=== PATIENT | female | born 1990 | race Caucasian/White ===

== ENCOUNTER 2017-02-18 07:00 | Inpatient (IN) | payer OTHER ==
[2017-02-18 08:17] VITALS: BMI 31.2
[2017-02-18 08:27] LABS: BASOPHIL 0.3 % (0-2.0); EOSINOPHIL 0.5 % (0-4.5); MCH 30.6 pg (25.7-33.7); MCHC 33.6 g/dl (32.0-36.0); MEAN CELL VOLUME 91.3 fl (80-96); MEAN PLT VOLUME 8.8 fl (7.5-11.1); NEUTROPHILS 69.2 % (42.8-82.8); PLATELET COUNT 249 K/MM3 (134-434); RDW 14.2 % (11.6-15.6); WHITE BLOOD COUNT 8.7 K/mm3 (4.0-10.0)
[2017-02-18 08:41] LABS: INR 0.9 (0.82-1.09); PROTHROMBIN TIME (PATIENT) 9.9 SEC (9.98-11.88)
[2017-02-18 08:45] LABS: ACTIVATED PTT 25.6 SECONDS (26.9-34.4)
[2017-02-18 08:48] LABS: CALCIUM 8.2 mg/dL (8.5-10.1); COCKROFT - GAULT 198.7725; CREATININE 0.5 mg/dL (0.55-1.02)
[2017-02-18] MEDS ORDERED: PROMETHAZINE HCL 25 MG/1 ML VIAL IVPUSH ONE (11:42)
[2017-02-18] MEDS ORDERED: BUTORPHANOL TARTRATE 1 MG/ML VIAL IVPB ONE (11:42)
[2017-02-18] MEDS ORDERED: OXYTOCIN 15 UNITS/ LR 250 ML 250 ML IVPB SCH (11:45)
[2017-02-18] MEDS ORDERED: DEXTROSE 5%-LACTATED RINGERS 1,000 ML IV SCH (11:45)
--- NOTE | 2017-02-18 11:53 | HP ---
Past Medical History - Primary Care Physician PCP:: Sulema Card - Admission Chief Complaint: 26 yrs , 40.4 weeks by dates & 39.4 weeks by sono , is admitted in labor. onset of LP since 9.00am c/o bleeding , bloody show History of Present Illness: PNC at , 2 [facility] . , wt gain 35 lbs . work UP : O Pos, Rpr nr, Hbsag neg, Rubella pos, Hiv nr, Quantiferon pos, , Gbs neg , Hiv neg Ntscreen neg, Modified sequntial neg, 1 hr GTt 130. serial sono for growth were done by [facility]. last sono on 01/01/1732.3/7 wks, vx, post placenta, afi14.39, bpp8/8. 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 Weeks Gestation by Dates: 40.4 ...EDC by Dates: 02/14/17 ...EDC by Sono: 02/22/17 Infectious Disease: No: HIV, STD's Psych: No: Addictions, Anxiety, Depression, Psychosis - Past Surgical History Hx Myomectomy: No Hx Transabdominal Cerclage: No - Smoking History Smoking history: Never smoked Have you smoked in the past 12 months: No - Alcohol/Substance Use History of Substance Use: reports: None Home Medications - Allergies Allergies/Adverse Reactions: Allergies Allergy/AdvReac Type Severity Reaction Status Date / Time No Known Allergies Allergy Verified 01/05/17 13:22 - Home Medications Home Medications: Ambulatory Orders Vit/Iron Fumarate/FA [ Tablet] 1 each PO DAILY 01/05/17 Physical Exam - Maternity Vital Signs: Vital Signs Temperature 98.0 F 02/18/17 10:00 Pulse Rate 78 02/18/17 11:00 Respiratory Rate 18 02/18/17 11:00 Blood Pressure 121/62 02/18/17 11:00 O2 Sat by Pulse Oximetry (%) Constitutional: Yes: Well Nourished, Calm, Obese Eyes: Yes: WNL HENT: Yes: WNL, Normocephalic Neck: Yes: WNL Cardiovascular: Yes: WNL Lungs: Clear to auscultation Breast(s): Yes: WNL - Abdominal Exam/OB Fundal Height: 38 Number of Fetuses: Single Presentation: Vertex Contractions: Yes Regularity: Irregular (4-7 min) Intensity: Moderate Monitor Mode: External Heart Rate Location: [facility] Category: I Accelerations: Uniform - Vaginal Exam/OB Vaginal Bleediing: Bloody Show Speculum Exam: No Dilatation (cm): 4-5 Effacement (%): 80 Amniotic Membrane Status: Intact Presentation: Vertex/Position (exam at 11.00am) Station: -1 - Physical Exam Musculoskeletal: Yes: WNL Extremities: Yes: WNL. No: Calf Tenderness Edema: Yes Edema: LLE: Trace, RLE: Trace ...Motor Strength: WNL Psychiatric: Yes: WNL, Alert, Oriented - Labs Lab Results: CBC, BMP 02/18/17 08:00 02/18/17 08:00 Laboratory Tests 02/18/17 02/18/17 02/18/17 08:00 08:00 08:00 INR 0.90 PTT (Actin FS) 25.6 L RPR Titer Nonreactive Blood Type O POSITIVE Problem List - Problems (1) with 39 completed weeks gestation Code(s): Z3A.39 - 39 WEEKS GESTATION OF (2) Labor established Code(s): SKT7762 - Assessment/Plan 26 yrs , 39.4 weeks in labor .Gbs neg Plan Trial vag delivery Pitocin augmentation Stadol + Phenrgan for labor analgesia prn
--- NOTE | 2017-02-18 14:03 | PN ---
Progress Note, Labor Vaginal Exam #1 Labor Exam Date: 02/18/17 Labor Exam Time: 14:00 Heart Rate (range): 150 Dilatation: 9 Effacement (%): 100 Amniotic Membrane Status: Ruptured (AROM clear , minimal) Presentation: Vertex/Position Station: +1 Remarks: fhr cat-1 uc q 2-3 min 14.05 hr; fully dilated /100%/vx+2/MR pt pushing
[2017-02-18] MEDS ORDERED: BENZOCAINE 20% 57 GM BOTTLE TP PRN (14:21)
[2017-02-18] MEDS ORDERED: ACETAMINOPHEN 325 MG TABLET (FP) PO PRN (14:21)
[2017-02-18] MEDS ORDERED: IBUPROFEN 600 MG TABLET (FP) PO PRN (14:21)
[2017-02-18] MEDS ORDERED: WITCH HAZEL 50% (TUCKS) 40 PAD/JAR PAD TP PRN (14:21)
[2017-02-18] MEDS ORDERED: BISACODYL 10 MG SUPP.RECT RC PRN (14:21)
[2017-02-18] MEDS ORDERED: BENZOCAINE 28 GM HEMORRHOIDAL OINTMENT TP PRN (14:21)
[2017-02-18] MEDS ORDERED: oxyCODONE HCL 5 MG TABLET PO PRN (14:21)
[2017-02-18] MEDS ORDERED: METHYLERGONOVINE MALEATE 0.2 MG/1 ML AMP IM PRN (14:21)
[2017-02-18] MEDS ORDERED: D5W-LR W/ 20 UNITS OXYTOCIN 1,000 ML IV SCH (14:30)
--- NOTE | 2017-02-18 14:30 | PN ---
Delivery - Delivery Vaginal Delivery: No Problems, Spontaneous Episiotomy/Laceration: None EBL (cc): 300 Delivery, Single - Stages of Labor Date 1st Stage Initiatied: 02/18/17 Time 1st Stage Initiated: 09:00 Date 2nd Stage Initiated: 02/18/17 Time 2nd Stage Initiated: 14:05 Date of Delivery: 02/18/17 Time of Delivery: 14:10 Date Placenta Delivered: 02/18/17 Time Placenta Delivered: 14:12 Placenta: Yes: Spontaneous, Uterine Exploration - Condition of Network Support Manager/Hospice Superintendent Present: No Infant Gender: Male Weight: 7 lb 3 oz Position: Left, OA Total Hours ROM (Hrs/Mins): 12 min - 1 Minute Total Score: 9 5 Minutes Total Score: 10 - [place] Feeding Plan Initial Plan: Elected not to breastfeed exclusively throughout hospitalization Remarks - Remarks Remarks: 26 yrs , , 39.4 weeks by sono, 40.4 weeks by dates admitted in labor pnc at, 2 [facility] GBS neg Pitocin augmentation was done Intrapartum course uneventful. Quantiferon Positive, chest Xray requested
[2017-02-18] MEDS: FERROUS SO4 325 MG TABLET (FP) PO SCH (18:21)
[2017-02-19 07:30] LABS: BASOPHIL 0.3 % (0-2.0); EOSINOPHIL 0.3 % (0-4.5); MCH 30.6 pg (25.7-33.7); MCHC 33.7 g/dl (32.0-36.0); MEAN CELL VOLUME 90.8 fl (80-96); NEUTROPHILS 74.2 % (42.8-82.8); PLATELET COUNT 238 K/MM3 (134-434); RDW 14.4 % (11.6-15.6); WHITE BLOOD COUNT 11.7 K/mm3 (4.0-10.0)
--- NOTE | 2017-02-19 08:27 | PN ---
Post Progress Note - Subjective Subjective: no complains Post Day: 1 Type of Delivery: Vital Signs: Vital Signs Temperature 97.9 F 02/19/17 06:00 Pulse Rate 79 02/19/17 06:00 Respiratory Rate 18 02/19/17 06:00 Blood Pressure 107/66 02/19/17 06:00 O2 Sat by Pulse Oximetry (%) Breast Exam: Yes: Soft, Other (BF). No: Engorged Uterus: Yes: Fundus Firm, Fundus below umbilicus Lochia: Yes: Rubra Lochia, amount: Moderate Extremities: Yes: Calves non-tender Perineum: Yes: Intact Activity: Ambulating - Labs Labs: CBC WBC 11.7 K/mm3 (4.0-10.0) H D 02/19/17 06:00 RBC 3.64 M/mm3 (3.60-5.2) 02/19/17 06:00 Hgb 11.1 GM/dL (10.7-15.3) 02/19/17 06:00 Hct 33.0 % (32.4-45.2) 02/19/17 06:00 MCV 90.8 fl (80-96) 02/19/17 06:00 MCHC 33.7 g/dl (32.0-36.0) 02/19/17 06:00 RDW 14.4 % (11.6-15.6) 02/19/17 06:00 Plt Count 238 K/MM3 (134-434) 02/19/17 06:00 MPV 9.0 fl (7.5-11.1) 02/19/17 06:00 Neutrophils % 74.2 % (42.8-82.8) 02/19/17 06:00 Lymphocytes % 17.5 % (8-40) D 02/19/17 06:00 Monocytes % 7.7 % (3.8-10.2) 02/19/17 06:00 Eosinophils % 0.3 % (0-4.5) 02/19/17 06:00 Basophils % 0.3 % (0-2.0) 02/19/17 06:00 Problem List - Problems (1) with 39 completed weeks gestation Code(s): Z3A.39 - 39 WEEKS GESTATION OF (2) Labor established Code(s): LTA7143 - Assessment/Plan stable plan discharge tomorrow.
[2017-02-19] MEDS: FERROUS SO4 325 MG TABLET (FP) PO SCH ×2 (09:02→18:05)
[2017-02-19] MEDS: PRENATAL VITAMINS W/ FOLIC ACID TABLET (FP) PO SCH (09:02)
[2017-02-19] MEDS ORDERED: SENNOSIDES/DOCUSATE COMBO (SENNA PLUS) TABLET (UD) PO PRN (22:00)
--- NOTE | 2017-02-20 07:29 | DS ---
Physical Exam-RADIOLOGY SCHEDULER Vital Signs: Vital Signs Temperature 97.8 F 02/19/17 21:00 Pulse Rate 77 02/19/17 21:00 Respiratory Rate 20 02/19/17 21:00 Blood Pressure 117/48 02/19/17 21:00 O2 Sat by Pulse Oximetry (%) Constitutional: Yes: Well Nourished Eyes: Yes: WNL HENT: Yes: WNL Neck: Yes: WNL Cardiovascular: Yes: WNL Respiratory: Yes: WNL Gastrointestinal: Yes: WNL ...Rectal Exam: Yes: WNL Renal/: Yes: WNL ....Post : Yes: Uterus firm, Uterus non-tender, Moderate lochia rubra ( perineum intact) Breast(s): Yes: WNL (BF) Extremities: Yes: WNL. No: Calf Tenderness Edema: Yes Edema: LLE: 1+, RLE: 1+ Neurological: Yes: WNL ...Motor Strength: WNL Psychiatric: Yes: WNL Labs: CBC, BMP 02/19/17 06:00 02/18/17 08:00 Delivery - Delivery Vaginal Delivery: No Problems, Spontaneous Episiotomy/Laceration: None EBL (cc): 300 Delivery, Single - Stages of Labor Date 1st Stage Initiatied: 02/18/17 Time 1st Stage Initiated: 09:00 Date 2nd Stage Initiated: 02/18/17 Time 2nd Stage Initiated: 14:05 Date of Delivery: 02/18/17 Time of Delivery: 14:10 Time Placenta Delivered: 14:12 Placenta: Yes: Spontaneous, Uterine Exploration - Condition of Infant Campus Supervisor/Cafeteria Team Leader Present: No Gender: Male Weight: 7 lb 3 oz Position: Left, OA Total Hours ROM (Hrs/Mins): 12 min - 1 Minute Total Score: 9 5 Minutes Total Score: 10 - [place] Feeding Plan Initial Plan: Elected not to breastfeed exclusively throughout hospitalization Remarks - Remarks Remarks: 26 yrs , , 39.4 weeks by sono, 40.4 weeks by dates [facility] Pitocin augmentation was done Intrapartum course uneventful. Quantiferon Positive, chest Xray requested . chest Xray neg pp course unevntful. discharge today Discharge Summary Reason For Visit: LABOR Current Active Problems Labor established (Acute) Normal spontaneous vaginal delivery (Acute) with 39 completed weeks gestation (Acute) Condition: Stable - Instructions Diet, Activity, Other Instructions: Post Instructions DIET: Continue good diet high in protein, calcium, and iron rich foods. Drink at least eight (8) glasses of water daily in addition to other fluids. ct Regular diet MEDICATIONS: Continue vitamins and iron as previously directed. Motrin and Tylenol may be taken for minor discomfort. ACTIVITY: Mild to moderate exercise may be started in two (2) weeks. Take frequent rest periods. Resume normal activity after six (6) week check up. WOUND CARE OF OPERATIVE SITE: Continue use of perineal bottle until vaginal discharge stops. Keep area clean. Shower daily. Keep abdominal wound dry. Report any drainage or redness to physician. Tub baths, tampons and douches are not permitted for [address] Breast feeding & or Bottle feeding BREAST CARE: (For those that are not breast feeding): If engorgement occurs: Wear tight fitting bra. Take Tylenol or Motrin for pain. Apply cold packs (ice in bags to each breast ) FAMILY PLANNING: There are many control alternatives to pursue and they should be discussed at your first office visit. You may resume sexual activity after your six (6) week check up. (Remember, breast feeding is not a contraceptive) NEXT PHYSICIAN APPOINTMENT: Be certain to call for a six (6) week appointment, unless otherwise directed. Call Clinic or got to Emergency Dept if you have any of the following: Heavy vaginal bleeding Painful urination Leg pain Unusual odor noted to vaginal bleeding High fever Red streaking noted on breast Referrals: Sulema Card MD [Staff Physician] - Disposition: HOME - Home Medications Comprehensive Discharge Medication List: Ambulatory Orders Vit/Iron Fumarate/FA [ Tablet] 1 each PO DAILY 01/05/17 Acetaminophen [Tylenol .Regular Strength -] 650 mg PO Q3H PRN #0 tablet Ferrous Sulfate [Feosol] 325 mg PO BIDWM #60 tab 02/18/17 Ibuprofen [Motrin -] 200 mg PO Q4H PRN #0 tablet 02/18/17 Vitamins (Sjr) - 1 tab PO DAILY tablet 02/18/17
[2017-02-20] MEDS: FERROUS SO4 325 MG TABLET (FP) PO SCH (08:22)
[2017-02-20 08:39] VITALS: BP 111/75; PULSE 76; TEMP 98.1
[2017-02-20] MEDS: PRENATAL VITAMINS W/ FOLIC ACID TABLET (FP) PO SCH (09:48)
== END 2017-02-20 12:15 | disposition home or self-care (01) | DRG 560 ==
LOC: JDEL 07:00 → JLDR 07:30 → J3W 15:24
PROVIDERS: ADMIT Obstetrics & Gynecology; ATTEND Obstetrics & Gynecology
PROC: 10E0XZZ Delivery of Products of Conception, External Approach (ICD-10-PCS; principal; 2017-02-18)
DX: O80 Encounter for full-term uncomplicated delivery (principal); Z3A.39 39 weeks gestation of pregnancy; Z37.0 Single live birth
CPT/HCPCS: 36415; 59409; 71020-TC; 80048; 85025; 85610; 85730; 86593; 86850; 86900; 86901

== ENCOUNTER 2021-10-10 15:29 | Emergency (ER) | payer OTHER ==
[2021-10-10 15:44] VITALS: BP 91/56; PULSE 73; TEMP 98.6; BMI 24.4
[2021-10-10] MEDS ORDERED: IBUPROFEN 600 MG TABLET (FP) PO ONE ×2 (17:13→17:15)
== END 2021-10-10 17:28 | disposition home or self-care (01) ==
LOC: JERFT 15:29
DX: Z30.46 Encounter for surveillance of implantable subdermal contraceptive (principal)
CPT/HCPCS: 99283-25

== ENCOUNTER 2022-09-19 22:16 | Emergency (ER) | payer OTHER ==
[2022-09-19 22:25] VITALS: RESP 18; BMI 24.5
[2022-09-20] MEDS ORDERED: ACETAMINOPHEN 1000 MG/100 ML BAG IVPB ONE (00:55)
[2022-09-20 01:44] LABS: BASO % 0.3 % (0-2.0); EOS % 1.1 % (0-4.5); HEMATOCRIT 35.8 % (32.4-45.2); HEMOGLOBIN 12.5 GM/dL (10.7-15.3); LYMPH % 32.5 % (8-40); MCH 32.8 pg (25.7-33.7); MCHC 34.8 g/dl (32.0-36.0); MEAN CELL VOLUME 94.4 fl (80-96); MEAN PLT VOLUME 7.7 fl (7.5-11.1); MONO % 6.6 % (3.8-10.2); NEUT % 59.5 % (42.8-82.8); PLATELET COUNT 316 10^3/uL (134-434); RBC 3.79 M/mm3 (3.60-5.2); RDW 12.6 % (11.6-15.6); WHITE BLOOD COUNT 9.2 K/mm3 (4.0-10.0)
[2022-09-20] MEDS ORDERED: ACETAMINOPHEN INJECTION 100 ML IVPB ONE (01:56)
[2022-09-20 02:09] LABS: CALCIUM 8.6 mg/dL (8.5-10.1)
[2022-09-20 02:10] LABS: ALBUMIN 3.7 g/dl (3.4-5.0); BLOOD UREA NITROGEN 9.9 mg/dL (7-18)
[2022-09-20 02:13] LABS: CREATININE 0.5 mg/dL (0.55-1.3)
[2022-09-20 02:15] LABS: BILIRUBIN,TOTAL 0.2 mg/dL (0.2-1); TOT PROT 7.1 g/dl (6.4-8.2)
[2022-09-20 03:24] LABS: EPI CELLS 26 /uL (0-25.1); HYALINE CASTS 1 /uL (0-3.1); URINE APPEARANCE CLEAR; URINE BACTERIA 272 /uL (0-1359); URINE BILIRUBIN NEGATIVE (NEGATIVE); URINE COLOR YELLOW; URINE GLUCOSE (UA) NEGATIVE (NEGATIVE); URINE KETONE NEGATIVE (NEGATIVE); URINE LEUK ESTERASE TRACE (NEGATIVE); URINE NITRITE NEGATIVE (NEGATIVE); URINE PROTEIN NEGATIVE (NEGATIVE); URINE RBC 19 /uL (0-23.9); URINE UROBILINOGEN 0.2 mg/dL (0.2-1.0); URINE WBC 3 /uL (0-25.8)
[2022-09-20 04:14] VITALS: BP 118/72; PULSE 88; TEMP 98.6
== END 2022-09-20 04:14 | disposition home or self-care (01) ==
LOC: JER 22:16
PROC: 3E033NZ Introduction of Analgesics, Hypnotics, Sedatives into Peripheral Vein, Percutaneous Approach (ICD-10-PCS; principal; 2022-09-20)
DX: R10.2 Pelvic and perineal pain (principal)
CPT/HCPCS: 36415; 76817-TC; 80053; 81003; 83690; 84702; 85025; 86850; 86900; 86901; 87086; 87186; 99284-25

== ENCOUNTER 2023-04-10 12:40 | Emergency (ER) | payer OTHER ==
[2023-04-10 12:51] VITALS: RESP 18; BMI 28.3
[2023-04-10] MEDS ORDERED: LACTATED RINGERS SOLUTION 1,000 ML IV ONE (13:30)
[2023-04-10 13:52] VITALS: BP 112/65; PULSE 78; TEMP 97.9
[2023-04-10 14:33] LABS: EPI CELLS >36 /uL (0-25.1); HYALINE CASTS 1 /uL (0-3.1); PH,URINE 6.5 (5.0-8.0); URINE APPEARANCE CLEAR; URINE BACTERIA 7413 /uL (0-1359); URINE BILIRUBIN NEGATIVE (NEGATIVE); URINE COLOR YELLOW; URINE GLUCOSE (UA) NEGATIVE (NEGATIVE); URINE KETONE NEGATIVE (NEGATIVE); URINE LEUK ESTERASE 3+ (NEGATIVE); URINE NITRITE NEGATIVE (NEGATIVE); URINE PROTEIN NEGATIVE (NEGATIVE); URINE RBC 6 /uL (0-23.9); URINE UROBILINOGEN 0.2 mg/dL (0.2-1.0); URINE WBC 232 /uL (0-25.8)
== END 2023-04-10 15:40 | disposition home or self-care (01) ==
LOC: JER 12:40
DX: O26.893 Other specified pregnancy related conditions, third trimester (principal); R10.30 Lower abdominal pain, unspecified; Z3A.34 34 weeks gestation of pregnancy
CPT/HCPCS: 81003; 87086; 99284-25

== ENCOUNTER 2023-05-25 09:25 | Inpatient (IN) | payer OTHER ==
[2023-05-25 10:37] LABS: BASO % 0.1 % (0-2.0); EOS % 0.4 % (0-4.5); HEMOGLOBIN 11.1 GM/dL (10.7-15.3); LYMPH % 20.6 % (8-40); MCH 29.2 pg (25.7-33.7); MCHC 33.5 g/dl (32.0-36.0); MEAN CELL VOLUME 87.1 fl (80-96); MEAN PLT VOLUME 8.6 fl (7.5-11.1); MONO % 8.2 % (3.8-10.2); NEUT % 70.7 % (42.8-82.8); PLATELET COUNT 276 10^3/uL (134-434); RBC 3.79 M/mm3 (3.60-5.2); RDW 15.8 % (11.6-15.6); WHITE BLOOD COUNT 7.4 K/mm3 (4.0-10.0)
[2023-05-25 10:41] VITALS: BMI 33.1
[2023-05-25 11:00] LABS: INR 0.96 (0.83-1.09); PROTHROMBIN TIME (PATIENT) 11.1 SEC (9.7-13.0)
[2023-05-25] MEDS ORDERED: ELECTROLYTE-148 SOLN 1,000 ML IV SCH ×2 (11:00→12:00)
[2023-05-25 11:03] LABS: ACTIVATED PTT 23.8 SECONDS (25.2-36.5)
[2023-05-25 11:42] LABS: POTASSIUM 4.3 mmol/L (3.5-5.1)
[2023-05-25 11:43] LABS: CALCIUM 8.7 mg/dL (8.5-10.1)
[2023-05-25 11:44] LABS: BLOOD UREA NITROGEN 9.3 mg/dL (7-18)
[2023-05-25 11:47] LABS: CREATININE 0.5 mg/dL (0.55-1.3)
[2023-05-25] MEDS ORDERED: OXYTOCIN 30 UNITS in 0.9% NS 30 UNIT/500 ML INFUS.BAG IVPB ONE (11:55)
[2023-05-25] MEDS ORDERED: OXYTOCIN 30 UNITS in 0.9% NS 30 UNIT/500 ML INFUS.BAG IVPB SCH (12:15)
[2023-05-25] MEDS ORDERED: LIDOCAINE HCL 1% PRESERVATIVE FREE - 30ML VIAL ONE (20:26)
[2023-05-25] MEDS ORDERED: OXYTOCIN 20 UNITS in 0.9% NS 20 UNIT/1,000 ML INFUS.BAG IV ONE (20:26)
[2023-05-25] MEDS ORDERED: ACETAMINOPHEN 325 MG TABLET (FP) PO PRN (20:41)
[2023-05-25] MEDS ORDERED: BENZOCAINE 20% 57 GM BOTTLE TP PRN (20:41)
[2023-05-25] MEDS ORDERED: BENZOCAINE 28 GM HEMORRHOIDAL OINTMENT TP PRN (20:41)
[2023-05-25] MEDS ORDERED: BISACODYL 10 MG SUPP.RECT RC PRN (20:41)
[2023-05-25] MEDS ORDERED: IBUPROFEN 600 MG TABLET (FP) PO PRN (20:41)
[2023-05-25] MEDS ORDERED: OXYTOCIN 20 UNITS in 0.9% NS 20 UNIT/1,000 ML INFUS.BAG IV SCH (20:45)
[2023-05-26 07:39] LABS: BASO % 0.3 % (0-2.0); EOS % 0.2 % (0-4.5); HEMATOCRIT 29.8 % (32.4-45.2); HEMOGLOBIN 9.7 GM/dL (10.7-15.3); LYMPH % 15.1 % (8-40); MCH 29.2 pg (25.7-33.7); MCHC 32.6 g/dl (32.0-36.0); MEAN CELL VOLUME 89.5 fl (80-96); MEAN PLT VOLUME 8.9 fl (7.5-11.1); MONO % 9.1 % (3.8-10.2); NEUT % 75.3 % (42.8-82.8); PLATELET COUNT 247 10^3/uL (134-434); RBC 3.33 M/mm3 (3.60-5.2); RDW 16.1 % (11.6-15.6); WHITE BLOOD COUNT 10.3 K/mm3 (4.0-10.0)
[2023-05-26 20:56] VITALS: RESP 17
[2023-05-26] MEDS ORDERED: SENNOSIDES/DOCUSATE COMBO (SENNA PLUS) TABLET (UD) PO PRN (22:00)
[2023-05-27 12:19] VITALS: BP 115/75; PULSE 73; TEMP 97.7
== END 2023-05-27 13:25 | disposition home or self-care (01) | DRG 560 ==
LOC: JLDR 09:25 → J3W 22:12
PROVIDERS: ADMIT Student in an Organized Health Care Education/Training Program; ATTEND Student in an Organized Health Care Education/Training Program
PROC: 10E0XZZ Delivery of Products of Conception, External Approach (ICD-10-PCS; principal; 2023-05-25)
DX: O41.03X0 Oligohydramnios, third trimester, not applicable or unspecified (principal); O48.0 Post-term pregnancy; Z3A.40 40 weeks gestation of pregnancy; Z37.0 Single live birth
CPT/HCPCS: 36415; 59025; 80048; 85025; 85610; 85730; 86780; 86850; 86900; 86901

== ENCOUNTER 2024-05-14 01:03 | Emergency (ER) | payer OTHER ==
[2024-05-14 01:20] VITALS: BP 119/75; PULSE 77; RESP 20; TEMP 98; BMI 31.8
[2024-05-14] MEDS ORDERED: LIDOCAINE 4% PATCH TP ONE (02:07)
[2024-05-14] MEDS ORDERED: CYCLOBENZAPRINE HCL 5 MG TABLET ONE (02:07)
[2024-05-14] MEDS ORDERED: ACETAMINOPHEN 500 MG TABLET (FP) ONE (02:08)
[2024-05-14] MEDS: LIDOCAINE 5% TOPICAL PATCH TP ONE (02:14)
[2024-05-14] MEDS: CYCLOBENZAPRINE HCL 10 MG TABLET (FP) PO ONE (02:14)
[2024-05-14] MEDS: ACETAMINOPHEN 500 MG TABLET (FP) PO ONE (02:15)
[2024-05-14] MEDS ORDERED: KETOROLAC TROMETHAMINE 15 MG/ML VIAL ONE (03:53)
[2024-05-14] MEDS: KETOROLAC TROMETHAMINE 15 MG/ML VIAL IVPUSH ONE (04:00)
[2024-05-14] MEDS ORDERED: LIDOCAINE PATCH REMOVAL MC ONE (14:00)
== END 2024-05-14 05:00 | disposition home or self-care (01) ==
LOC: JER 01:03
PROC: 3E0333Z Introduction of Anti-inflammatory into Peripheral Vein, Percutaneous Approach (ICD-10-PCS; principal; 2024-05-14)
DX: M54.50 Low back pain, unspecified (principal)
CPT/HCPCS: 36415; 84703; 99284-25